=== PATIENT | male | born 1950 | race Caucasian/White ===

== ENCOUNTER → 2023-09-16 | Outpatient (CLI) | payer MEDICARE, SELFPAY ==
--- NOTE | 2023-09-16 10:48 | DI.NM.S_ITS ---
DATE OF SERVICE: 09/16/2023 NUCLEAR CARDIOLOGY MYOCARDIAL PERFUSION STUDY Procedure: Exercise treadmill stress and rest myocardial perfusion imaging with gating to assess ejection fraction and regional wall motion. Ordering Provider: Dr. Andrew Gonzalez. Indications: The patient is a 73-year-old male with recently discovered atrial fibrillation. Cardiac Stress: The patient was able to exercise for a total of 5 minutes 13 seconds on a standard [place] protocol suggesting mildly impaired exercise capacity with an MILTON of +11%, achieving 7.0 METS. He had a normal heart rate and blood pressure response to exercise, achieving a maximum heart rate of 146 BPM (101% of his predicted maximum). He had no chest discomfort or other anginal symptoms. His resting ECG shows sinus rhythm at 80 BPM with a RBBB and LAFB but normal ST segments. With stress, there are no significant ST-segment shifts. He had occasional PACs and PVCs, rarely in couplets, but maintains sinus rhythm throughout the study. At 3 minutes and 48 seconds of exercise, at a heart rate of 124 BPM, 25.0 millicuries of technetium-99m Myoview was injected and he was imaged 15 minutes later using a gated SPECT acquisition protocol. Earlier in the day while at rest, he had been injected with 12.5 millicuries of technetium-99m Myoview and was imaged 15 minutes later, again using a gated SPECT acquisition protocol. FINDINGS: 1. Raw data: There is fairly good myocardial tracer uptake. The lung/heart ratio is normal at 0.28 with a normal TID ratio of 0.92. 2. Quantitated gated SPECT: Post stress ejection fraction is estimated at 63% without any focal wall motion abnormality and specifically the inferior wall appears to have normal contractility. The resting ejection fraction is 66% with a high-normal resting end-diastolic volume of 117 mL. 3. Myocardial perfusion imaging: Post-stress supine images show a moderate perfusion defect in the proximal to mid inferior wall in a pattern consistent with diaphragmatic attenuation, supported by its resolution on the prone images, revealing a normal, uniform pattern of tracer uptake. The resting images show a more significant perfusion defect in the inferior wall although these images were somewhat corrupted by small bowel activity adjacent to the inferolateral wall. There are no areas of improvement. IMPRESSION: 1. Probable normal myocardial perfusion study. 2. Moderate, fixed proximal to mid inferior defect, worse on the resting images, that completely resolves on the prone images, most consistent with diaphragmatic attenuation artifact. A previous nontransmural infarction cannot be entirely excluded given the severity of the defect, but this is less likely given the absence of any wall motion abnormality in this distribution. 3. Normal left ventricular systolic function without any focal wall motion abnormality. Left ventricular volumes are borderline increased. 4. Mildly impaired exercise capacity without angina or ECG evidence of ischemia. He had rare PACs and PVCs, rarely in couplets, but maintains sinus rhythm throughout the study. dd: 09/16/2023 17:04:00 DICTATING /COPIES TO: Sanjay Tavera MD
--- NOTE | 2023-09-24 10:41 | DI.NM.S_ITS ---
DATE OF SERVICE: 09/16/2023 NUCLEAR CARDIOLOGY MYOCARDIAL PERFUSION STUDY PROCEDURE: Exercise treadmill stress and rest myocardial perfusion imaging with gating to assess ejection fraction and regional wall motion. ORDERING PROVIDER: Dr. Andrew Gonzalez. INDICATIONS: The patient is a 73-year-old male with recently discovered atrial fibrillation. CARDIAC STRESS: The patient was able to exercise for a total of 5 minutes 13 seconds on a standard [place] protocol suggesting mildly impaired exercise capacity with an MILTON of +11%, achieving 7.0 METS. He had a normal heart rate and blood pressure response to exercise, achieving a maximum heart rate of 146 BPM (101% of his predicted maximum). He had no chest discomfort or other anginal symptoms. His resting ECG showed sinus rhythm at 80 BPM with a RBBB and LAFB but normal ST segments. With stress, there are no significant ST-segment shifts. He had occasional PACs and PVCs, rarely in couplets but maintains sinus rhythm throughout the study. There were no significant ST-segment shifts. At 3 minutes and 48 seconds of exercise, had a heart rate of 124 BPM, 25.0 millicuries of technetium-99m Myoview was injected and he was imaged 15 minutes later using a gated SPECT acquisition protocol. Earlier in the day while at rest, he had been injected with 12.5 millicuries of technetium-99m Myoview and was imaged 15 minutes later, again using a gated SPECT acquisition protocol. FINDINGS: 1. Raw data: There is fairly good myocardial tracer uptake. The lung/heart ratio was normal at 0.28 with a normal TID ratio of 0.92. 2. Quantitated gated SPECT: Post stress ejection fraction is estimated at 63% without any focal wall motion abnormality and specifically the inferior wall appears to have normal contractility. The resting ejection fraction is 66% with a high-normal resting end- diastolic volume of 117 mL. 3. Myocardial perfusion imaging: Post-stress supine images show a moderate perfusion defect in the proximal to mid inferior wall in a pattern consistent with diaphragmatic attenuation, supported by its resolution on the prone images, revealing a uniform, homogeneous pattern of tracer uptake. The resting images show a more significant perfusion defect in the inferior wall although were somewhat corrupted by small bowel activity adjacent to the inferolateral wall. There are no areas of improvement. IMPRESSION: 1. Probable normal myocardial perfusion study. 2. Moderate fixed proximal to mid inferior defect, worse on the resting images, and completely resolves on the prone images, most consistent with diaphragmatic attenuation artifact. A previous nontransmural infarction cannot be entirely excluded given the severity of the defect but this is less likely given the absence of any wall motion abnormality in this distribution. 3. Normal left ventricular systolic function without any focal wall motion abnormality. Left ventricular volumes are mildly increased. 4. Mildly impaired exercise capacity without angina or ECG evidence of ischemia. He had rare PACs and PVCs, rarely in couplets, but maintains sinus rhythm throughout the study. Albertina Gregorio - RS/fn/AY doc#: [id number]/job#: [id number] dd: 09/16/2023 17:04:00 dt: 09/16/2023 21:56:00 DICTATING /COPIES TO: Sanjay Tavera MD; Andrew Gonzalez MD COPIES MNE: JUHI;
== END ==
LOC: NUCM 10:34
PROVIDERS: PCP Family Medicine; Referring Provider Internal Medicine Cardiovascular Disease; Visit Provider Internal Medicine Cardiovascular Disease
DX: I48.91 Unspecified atrial fibrillation (principal)
CPT/HCPCS: 78452; 93017; A9502